=== PATIENT | male | born 1980 | race Caucasian/White ===

== ENCOUNTER 2017-09-04 00:23 | Emergency (ER) | payer OTHER ==
[2017-09-04 00:33] VITALS: BP 137/79; PULSE 56; RESP 16; TEMP 97.7; O2SAT 100
--- NOTE | 2017-09-04 01:17 | EDPHY ---
H & P Time Seen by Provider: 09/04/17 01:11 HPI/ROS: Chief complaint: Left great toe pain History of present illness: This is a 36-year-old male who presents to the emergency department for left great toe pain. He reports pain developed over the last 2 weeks. He has developed a large bump on his toe with the pain. It makes it difficult to walk. He denies precipitating factors such as trauma. No report of abnormal warmth or coolness. No paresthesias in the toe. He can still move it well without discomfort. History of trauma. Smoking Status: Never smoked Physical Exam: General: Alert, nontoxic Skin: Patient has a callus blister over the medial aspect of the distal left great toe. There is no erythema or edema or warmth to suggest infection. No red streaking. Musculoskeletal: Patient is flexing extending the left great toe without difficulty. Vascular: Capillary refill brisk in the left great toe. Neurologic: Sensation intact throughout the left great toe Constitutional: Initial Vital Signs Temperature (C) 36.5 C 09/04/17 00:30 Heart Rate 56 L 09/04/17 00:30 Respiratory Rate 16 09/04/17 00:30 Blood Pressure 137/79 H 09/04/17 00:30 O2 Sat (%) 100 09/04/17 00:30 O2 Delivery Mode Room Air Allergies/Adverse Reactions: No Known Allergies Allergy (Unverified 09/04/17 00:30) Home Medications: Medication Instructions Recorded NK [No Known Home Meds] 09/04/17 MDM/Departure - MDM Imaging: I viewed and interpreted images myself ED Course/Re-evaluation: Patient seen under the supervision of my secondary supervising physician Dr. Nicolas Flores. Patient presents to the emergency department for pain and a bump on his left great toe. He appears to have a blister. Symptomatic care is discussed. Return precautions are given. Patient voiced understanding and agreement with plan. - Depart Disposition: Home, Routine, Self-Care Clinical Impression: Blister Condition: Good Instructions: Blister (ED) Additional Instructions: Follow-up with a primary care doctor for recheck If symptoms worsen or new symptoms develop return to the emergency room for recheck Referrals: NONE *PRIMARY CARE P,. [Primary Care Provider] - As per Instructions [facility],. [Clinic] - As per Instructions
== END 2017-09-04 01:53 | disposition home or self-care (01) ==
DX: R23.8 Other skin changes (principal)

== ENCOUNTER → 2017-12-29 | Outpatient (CLI) | payer OTHER | LOC: FIMAGING 09:36 | PROVIDERS: ATTEND Family Medicine | DX: M25.532 Pain in left wrist (principal) ==

== ENCOUNTER → 2018-08-16 | Outpatient (CLI) | payer OTHER | LOC: FIMAGING 08:39 | PROVIDERS: ATTEND Orthopaedic Surgery | DX: S83.242A Other tear of medial meniscus, current injury, left knee, initial encounter (principal); M25.462 Effusion, left knee ==

== ENCOUNTER 2018-09-13 08:29 | Day surgery (SDC) | payer OTHER ==
--- NOTE | 2018-09-12 12:54 | PDGENHP ---
History & Physical Chief Complaint: left knee meniscal tear History of Present Illness: Moy is a pleasant 37 year old male who presents with left knee meniscal tear. We discussed conservative and surgical treatment and he would like to proceed with surgical intervention. Pertinent Past, Social, Family History: PMH: none. SH: non-contributory. FH: non-contributory Relevant Physical Exam: Physical exam of the left knee demonstrates a mild effusion. Full extension and flexion symmetrical. Mild retropatellar crepitation with active extension. Stable to varus and valgus stressing. Lachmans negative. He has severe, focal tenderness overlying the mid medial joint line. Non-tender overlying the lateral joint line, parapatellar region, or patellar or quadriceps tendon. Distal NVI. Cardiorespiratory Assessment: RRR, CTAB
[2018-09-13] MEDS ORDERED: ceFAZolin 2 GM/DEXTROSE 100 ML IV ONE (09:42)
[2018-09-13] MEDS ORDERED: LR 1,000 ML IV ONE (09:44)
[2018-09-13] MEDS ORDERED: BUPIVACAINE/EPI 0.5% 30 ML SDV ONE (10:33)
[2018-09-13] MEDS ORDERED: ALBUTEROL 3 ML DEYVIAL IH PRN (10:38)
[2018-09-13] MEDS ORDERED: MIDAZOLAM 2 MG/2 ML VIAL IVP ONE (10:38)
[2018-09-13] MEDS ORDERED: NALOXONE HCL 0.4 MG/ML INJ IVP PRN (10:38)
[2018-09-13] MEDS ORDERED: fentaNYL 100 MCG/2 ML INJ IVP PRN (10:38)
[2018-09-13] MEDS ORDERED: oxyCODONE IR 5 MG TAB PO PRN ×2 (10:38→12:32)
[2018-09-13] MEDS ORDERED: HYDROmorphONE/DILAUDID 2 MG/ML INJ IVP PRN (10:38)
[2018-09-13] MEDS ORDERED: DEXAMETHASONE 4 MG/ML VIAL IVP PRN (10:38)
[2018-09-13] MEDS ORDERED: ACETAMINOPHEN 500 MG TAB PO PRN (10:38)
[2018-09-13] MEDS ORDERED: ONDANSETRON 4 MG/2 ML VIAL IVP PRN ×2 (10:38→12:32)
--- NOTE | 2018-09-13 10:44 | PDANEPAE ---
ANE History of Present Illness Knee Scope ANE Past Medical History - Cardiovascular History Hx Hypertension: No Hx Arrhythmias: No Hx Chest Pain: No Hx Coronary Artery / Peripheral Vascular Disease: No Hx CHF / Valvular Disease: No Hx Palpitations: No - Pulmonary History Hx COPD: No Hx Asthma/Reactive Airway Disease: No Hx Recent Upper Respiratory Infection: No Hx Oxygen in Use at Home: No Hx Sleep Apnea: No Sleep Apnea Screening Result - Last Documented: Negative - Neurologic History Hx Cerebrovascular Accident: No Hx Seizures: No Hx Dementia: No - Endocrine History Hx Diabetes: No - Renal History Hx Renal Disorders: No - Liver History Hx Hepatic Disorders: No - Neurological & Psychiatric Hx Hx Neurological and Psychiatric Disorders: No - Cancer History Hx Cancer: No - Congenital Disorder History Hx Congenital Disorders: No - GI History Hx Gastrointestinal Disorders: No - Other Health History Other Health History: none - Chronic Pain History Chronic Pain: No - Surgical History Prior Surgeries: nasal septum surgery, age 20 ANE Review of Systems Review of Systems: - Exercise capacity METS (RN): 5 METS ANE Patient History - Allergies Allergies/Adverse Reactions: No Known Allergies Allergy (Verified 09/01/18 10:12) - Home Medications Home Medications: NK [No Known Home Meds] 09/04/17 [Last Taken Unknown] - NPO status NPO Since - Liquids (Date): 09/12/18 NPO Since - Liquids (Time): 20:00 NPO Since - Solids (Date): 09/11/18 NPO Since - Solids (Time): 20:00 - Smoking Hx Smoking Status: Never smoked - Family Anes Hx Family Hx Anesthesia Complications: none ANE Labs/Vital Signs - Vital Signs Blood Pressure: 131/79 Heart Rate: 63 Respiratory Rate: 16 O2 Sat (%): 98 Height: 175.26 cm Weight: 70.307 kg ANE Physical Exam - Airway Neck exam: FROM Mallampati Score: Class 2 Mouth exam: normal dental/mouth exam - Pulmonary Pulmonary: clear to auscultation - Cardiovascular Cardiovascular: regular rate and rhythym - ASA Status ASA Status: I ANE Anesthesia Plan Anesthesia Plan: GA w LMA
--- NOTE | 2018-09-13 11:11 | PDHPUP ---
History & Physical Update H&P update statement: This history and physical update is based on an assessment of the patient which was completed after admission or registration (within 24 hours), but prior to the surgery/procedure. H&P update: H&P reviewed & patient examined, no change in patient's condition since H&P completed
[2018-09-13] MEDS ORDERED: PROPOFOL 200 MG/20 ML VIAL ONE (11:30)
[2018-09-13] MEDS ORDERED: fentaNYL 100 MCG/2 ML INJ ONE ×2 (11:30→12:05)
[2018-09-13] MEDS ORDERED: DEXAMETHASONE 4 MG/ML VIAL ONE (11:32)
[2018-09-13] MEDS ORDERED: ONDANSETRON 4 MG/2 ML VIAL ONE (11:32)
[2018-09-13] MEDS ORDERED: POLYETHYLENE GLYCOL 3350 17 GM PKT PO PRN (12:32)
[2018-09-13] MEDS ORDERED: KETOROLAC 15 MG/1 ML SDV IVP ONE (12:32)
[2018-09-13] MEDS ORDERED: CYCLOBENZAPRINE 10 MG TAB PO PRN (12:32)
[2018-09-13] MEDS ORDERED: traMADol 50 MG TAB PO PRN (12:32)
[2018-09-13] MEDS ORDERED: PROMETHAZINE HCL 25 MG SUPPR PR PRN (12:32)
[2018-09-13] MEDS ORDERED: LACTULOSE 20 GM/30 ML UDCUP PO PRN (12:32)
[2018-09-13] MEDS ORDERED: MAGNESIUM HYDROXIDE 30 ML UDCUP PO PRN (12:32)
[2018-09-13] MEDS ORDERED: TAPENTADOL HCL 50 MG TAB PO PRN (12:32)
[2018-09-13] MEDS ORDERED: TEMAZEPAM 15 MG CAP PO PRN (12:32)
[2018-09-13] MEDS ORDERED: PROMETHAZINE HCL 25 MG/ML INJ IVP PRN (12:32)
[2018-09-13] MEDS ORDERED: DIPHENOXYLATE/ATROPINE LOMOTIL 1 TAB PO PRN (12:32)
[2018-09-13] MEDS ORDERED: diphenhydrAMINE 25 MG CAP PO PRN (12:32)
[2018-09-13] MEDS ORDERED: METOCLOPRAMIDE 10 MG/2 ML VIAL IVP PRN (12:32)
[2018-09-13] MEDS ORDERED: ONDANSETRON DISINTEGRATING 4 MG TAB PO PRN (12:32)
[2018-09-13] MEDS ORDERED: BISACODYL 10 MG SUPP PR PRN (12:32)
--- NOTE | 2018-09-13 12:32 | POSTOPPROG ---
Post Op Note Date of Operation: 09/13/18 Surgeon: Tammie Kaufman Anesthesia: LMA Pre-op Diagnosis: l mmt Procedure: l knee scope with partial med menisectomy Inf/Abcess present in the surg proc area at time of surgery?: No Depth: Deep Incisional (Fascial) EBL: 50-100
--- NOTE | 2018-09-13 12:36 | POSTANESTH ---
Post Anesthetic Evaluation Cardiovascular Status: Normal, Stable Respiratory Status: Normal, Stable Level of Consciousness/Mental Status: Can Participate in Eval, Alert and Oriented Pain Control: Adequate, Prn Tx Ordered Nausea/Vomiting Control: Adequate, Prn Tx Ordered Complications Possibly Related to Anesthesia: None Noted
[2018-09-13] MEDS ORDERED: LR 1,000 ML IV SCH (13:00)
[2018-09-13] MEDS ORDERED: KETOROLAC 15 MG/1 ML SDV ONE (13:01)
[2018-09-13 14:11] VITALS: BP 124/77
[2018-09-13] MEDS ORDERED: ACETAMINOPHEN 325 MG TAB PO SCH (18:00)
[2018-09-13] MEDS ORDERED: FAMOTIDINE 20 MG TAB PO SCH (21:00)
[2018-09-13] MEDS ORDERED: SENNOSIDES/DOCUSATE SODIUM TAB PO SCH (21:00)
[2018-09-13] MEDS ORDERED: ASPIRIN 81 MG CHEWABLE TAB PO SCH (21:00)
--- NOTE | 2018-09-13 21:26 | GOP ---
DATE OF OPERATION: 09/13/2018 SURGEON: Tammie Kaufman MD ANESTHESIA: LMA. PREOPERATIVE DIAGNOSIS: Left medial meniscal tear. POSTOPERATIVE DIAGNOSIS: Left medial meniscal tear. PROCEDURE PERFORMED: Left knee arthroscopy with partial medial meniscectomy. FINDINGS: INDICATIONS: This is a 37-year-old male with several weeks pain into the medial portion of his left knee. MRI exam reveals a large tear of the medial meniscus. He wishes to have surgery in order to r esolve the problem. DESCRIPTION OF PROCEDURE: Patient brought to the operating room. After the left side had been ident ified as the correct side by the patient, nurse and physician. Once in the operating room, he was pl aced under general anesthesia using LMA. Once asleep, a tourniquet was placed around the upper porti on of the left thigh, and both legs placed in appropriate leg peña. The left lower extremity was t hen sterilely prepped and draped in the usual fashion using GSI solution was prepped and draped. The limb was exsanguinated, tourniquet inflated to 250 mmHg. Incision was made in the superomedial port ion of the knee with an outflow trocar was used without difficulty. A 2nd incision was made lateral to the patellar tendon between the inferior pole of the patella and the tibial plateau. The camera i ntroduced without difficulty. Inspection of the joint revealed no loose bodies in the suprapatellar pouch, in the lateral gutter. There were no chondral changes to the patella or the trochlea. Furthe r inspection revealed the ACL ligament to be intact. Inspection of the medial part revealed a large fragmented tear of the body and posterior horn of the medial meniscus with no significant chondral ch anges. Special lateral compartment no chondral changes and no meniscal tear. Therefore, a third inc ision was made medial to the patellar tendon between the inferior pole of the patella and tibial plat eau, and alternating with using a straight biter and a 4.0 mm smooth shaver was used to debride and d ebulk tears of the medial meniscus. Once completed, all instruments were removed from the knee with 30 cc of Marcaine infused in the knee joint. The 3 portal sites were closed using 3-0 nylon suture i n a [id number] type stitch. The wounds were dressed with Xeroform, 4 x 4, wrapped in Webril. T ourniquet was deflated at 20 minutes. Leg was completely undraped in the operating room, taken out o f the leg peña, tourniquet removed from the thigh and an Kenan wrap placed around the knee. The righ t leg was taken out of its leg peña. He was placed supine. He was woken up, extubated, transferre d onto a stretcher, and sent to recovery room in good condition. TOURNIQUET TIME: 20 minutes. /[id number]/MODL
== END 2018-09-13 14:40 | disposition home or self-care (01) ==
LOC: FSGY 08:29
PROVIDERS: ATTEND Orthopaedic Surgery
PROC: 0SBD4ZZ Excision of Left Knee Joint, Percutaneous Endoscopic Approach (ICD-10-PCS; principal; 2018-09-13 11:00)
DX: M23.222 Derangement of posterior horn of medial meniscus due to old tear or injury, left knee (principal)
CPT/HCPCS: J0690; J1100; J1885; J2250; J2405; J2704; J3010